=== PATIENT | female | born 2000 | race Two or more races ===

== ENCOUNTER 2023-12-25 02:25 | Emergency (ER) | payer OTHER ==
[~2023-12-25] VITALS: Ht 160 cm; Wt 52.2 kg
[2023-12-25] MEDS ORDERED: KETOROLAC TROMETHAMINE 10 MG TABLET PO STA (03:15)
[2023-12-25] MEDS ORDERED: NORFLEX100MG PO (03:58)
[2023-12-25] MEDS ORDERED: KETO10TA2 PO (03:58)
== END 2023-12-25 04:27 ==
LOC: ER 02:25
DX: S13.4XXA Sprain of ligaments of cervical spine, initial encounter (principal); V43.62XA Car passenger injured in collision with other type car in traffic accident, initial encounter; Y93.89 Activity, other specified; Y92.413 State road as the place of occurrence of the external cause; S39.012A Strain of muscle, fascia and tendon of lower back, initial encounter